=== PATIENT | female | born 1955 | race Caucasian/White ===

== ENCOUNTER 2023-09-04 18:47 | Observation (INO) | payer OTHER, MEDICARE ==
[~2023-09-04] VITALS: Ht 177.8 cm; Wt 96.4 kg
[2023-09-04] MEDS ORDERED: ASPI81CH PO (18:55)
[2023-09-04] MEDS ORDERED: OMEP20ER PO (19:52)
[2023-09-04] MEDS ORDERED: ZOLP10 PO (19:52)
[2023-09-04] MEDS ORDERED: CYCL10 PO (19:52)
[2023-09-04] MEDS ORDERED: LOSA25 (19:53)
[2023-09-04] MEDS ORDERED: Ativan1 MG PO (19:53)
[2023-09-04] MEDS ORDERED: Cymbalta20 MG (19:54)
[2023-09-04 20:15] LABS: Calcium, Ionized (POC) 1.06 mmol/L (1.10-1.46); Chloride (POC) 101 mmol/L (98-108); Creatinine (POC) 0.9 mg/dL (0.6-1.0); Glucose (ISTAT POC) 123 mg/dL (70-99); Hemoglobin (POC) 13.9 g/dL (12.0-16.0); Potassium (POC) 3.8 mmol/L (3.5-5.5); Sodium (POC) 136 mmol/L (135-148); Total CO2 (POC) 24 mmol/L (21-32)
[2023-09-04 21:45] LABS: BASOPHILS ABSOLUTE AUTO 0.05 K/mm3 (0.00-0.23); BASOPHILS PERCENT AUTO 0 % (0-2); EOSINOPHILS ABSOLUTE AUTO 0.07 K/mm3 (0.00-0.68); EOSINOPHILS PERCENT AUTO 1 % (0-6); Hematocrit 41.3 % (33.0-51.0); Hemoglobin 14.1 g/dL (11.5-16.0); IMMATURE GRAN ABSOLUTE AUTO 0.11 K/mm3 (0.00-0.10); IMMATURE GRAN PERCENT AUTO 1 % (0-1); LYMPHOCYTES ABSOLUTE AUTO 1.18 K/mm3 (0.84-5.20); LYMPHOCYTES PERCENT AUTO 8 % (21-46); MONOCYTES ABSOLUTE AUTO 0.84 K/mm3 (0.16-1.47); MONOCYTES PERCENT AUTO 6 % (4-13); Mean Corpuscular HGB Conc 34.1 g/dL (31.5-36.5); Mean Corpuscular Volume 91 fL (80-100); Mean Platelet Volume 12.2 fL (9.1-12.4); NEUTROPHILS PERCENT AUTO 85 % (41-73); Platelet Count 206 K/mm3 (150-400); RDW Coefficient Variation 12.8 % (11.7-14.2); RDW Standard Deviation 42.2 fL (35.1-46.3); Red Blood Cell Count 4.55 M/mm3 (3.80-5.20); White Blood Cell Count 15.35 K/mm3 (4.00-11.30)
[2023-09-04 21:57] LABS: Albumin, Blood 3.4 g/dL (3.4-5.0); Albumin/Globulin Ratio 1.1 (0.8-1.8); Bilirubin, Total 0.7 mg/dL (0.1-1.0); Bun/Creatinine Ratio 14.1 (12.0-20.0); Creatinine, Blood 0.99 mg/dL (0.40-1.00); Globulin, Blood 3.2 g/dL (2.2-4.0); Potassium, Blood 3.9 mmol/L (3.5-5.5); Total Protein, Blood 6.6 g/dL (6.4-8.2)
[2023-09-05 02:14] VITALS: BP 111/78
--- NOTE | 2023-09-05 02:36 | NUR ---
[facility] PT REQUIERING O2 TO KEEP SATS OVER 90%. PT PLACED ON 2L, AND STILL PT UNABLE TO MAINTAIN SATS, SATS HOVERING BETWEEN 86%-88%. RT CALLED AND CONSULTED ON PT. RT INITALLY PLACED PT ON 7 L O2 HIGH FLOW NASAL CANNULA, AND THEN DECREASED TO 6L. PT HAS BEEN ABLE TO MAINTAIN SATS AT ABOUT 95-96% ON 6L HIGH FLOW NASAL CANNULA. PT REPORTS THAT IT HURTS TO TAKE A DEEP BREATH IN. DR. MATAMOROS CALLED AND NOTIFIED OF PT 02 NEEDS. O2 ORDERED AND LEWIS BIOX ORDERED.
[2023-09-05 04:49] LABS: BASOPHILS ABSOLUTE AUTO 0.03 K/mm3 (0.00-0.23); BASOPHILS PERCENT AUTO 0 % (0-2); EOSINOPHILS ABSOLUTE AUTO 0.11 K/mm3 (0.00-0.68); EOSINOPHILS PERCENT AUTO 1 % (0-6); Hematocrit 37.8 % (33.0-51.0); IMMATURE GRAN ABSOLUTE AUTO 0.06 K/mm3 (0.00-0.10); IMMATURE GRAN PERCENT AUTO 0 % (0-1); LYMPHOCYTES ABSOLUTE AUTO 1.58 K/mm3 (0.84-5.20); LYMPHOCYTES PERCENT AUTO 11 % (21-46); MONOCYTES ABSOLUTE AUTO 0.93 K/mm3 (0.16-1.47); MONOCYTES PERCENT AUTO 7 % (4-13); Mean Corpuscular HGB 31.5 pg (26.0-34.0); Mean Corpuscular HGB Conc 34.4 g/dL (31.5-36.5); Mean Corpuscular Volume 92 fL (80-100); Mean Platelet Volume 11.6 fL (9.1-12.4); NEUTROPHILS ABSOLUTE AUTO 11.45 K/mm3 (1.96-9.15); NEUTROPHILS PERCENT AUTO 81 % (41-73); Platelet Count 183 K/mm3 (150-400); RDW Coefficient Variation 12.9 % (11.7-14.2); RDW Standard Deviation 42.5 fL (35.1-46.3); Red Blood Cell Count 4.13 M/mm3 (3.80-5.20); White Blood Cell Count 14.16 K/mm3 (4.00-11.30)
[2023-09-05 05:23] LABS: Albumin, Blood 3.1 g/dL (3.4-5.0); Bilirubin, Total 1.1 mg/dL (0.1-1.0); Bun/Creatinine Ratio 14.3 (12.0-20.0); Calcium, Blood 7.8 mg/dL (8.5-10.1); Creatinine, Blood 0.98 mg/dL (0.40-1.00); Potassium, Blood 3.9 mmol/L (3.5-5.5); Total Protein, Blood 6.1 g/dL (6.4-8.2)
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
[2023-09-05 07:31] VITALS: BP 135/82
[2023-09-05 15:39] VITALS: BP 149/93
[2023-09-05 19:18] VITALS: BP 130/67
--- NOTE | 2023-09-05 19:52 | NUR ---
PT HAS BEEN STABLE THIS SHIFT. O2 WEANED TO 1L NC. CONT BIOX REMAINS IN PLACE. IS USE APPROPRIATELY. PT WORKED WITH NURSING AND PT TO GET OOB. PUREWICK REMOVED, PT VOIDING WELL ON COMMODE. PAIN LEVELS HIGH, MANAGED WELL WITH PRN MEDS. K PAD PLACED TO BACK FOR PAIN RELIEF. ABD BINDER IN PLACE ALSO FOR COMFORT. TOLERATING DIET. PT CALL IGHT USED APPROPRIATELY NEEDED.
--- NOTE | 2023-09-06 04:31 | NUR ---
I CALLED [facility] REGARDING SCHEDULING TRANSPORT TO [place].I WAS ADVISED THEY ARE UNABLE TO TRANSPORT PT UNTIL APPROX 0900 DUE TO MULTIPLE TRANSFERS FROM [facility].I ADVISED EV AT TRANFERS DEPT [place] AND SHE STATED THEY MADELINE NOT GIVE PTS ROOM AWAY.TRANSFER IN AM IS ACCEPTABLE. I
[2023-09-06 06:16] VITALS: BP 141/84
[2023-09-06 07:31] VITALS: BP 152/83
[2023-09-06 08:06] VITALS: BP 152/83
--- NOTE | 2023-09-06 08:41 | NUR ---
SHIFT SUMMARY NOC. PT A/O X4. PT MEDICATED FOR PAIN X1 THIS SHIFT WITH RELIEF OF SX. PT REQUESTED HOME MED AMBIEN FOR SLEEP AND NEW ORDER RECEIVED AND GIVEN. PT'S BED ALARM WAS PLACED D/T SAFETY FOR AMBIEN. THIS RN WAS NOTIFIED OF POSSIBLE [place] TRANSFER FROM DR. SEGUNDO. DOCTOR OF [facility]ER[facility]IC[facility] HELPED WITH COORDINATION OF TRANSFER. ESTIMATED TIME OF TRANSFER SET TO BE 1100 TO [facility]. PT IN AGREEMENT WITH PLAN TO TRANSFER. NOTIFIED DAY SHIFT RN THAT REPORT NOT YET CALLED TO [facility]. PT VOIDING URINE AND HAS BEEN NPO SINCE 0000. PT RESTED WITH EYES CLOSED AND CALL LIGHT IN REACH.
[2023-09-06 10:56] VITALS: BP 168/105
[2023-09-06 11:08] VITALS: BP 152/94
[2023-09-06 11:18] VITALS: BP 152/94
--- NOTE | 2023-09-06 11:29 | NUR ---
transferred REPORT CALLED TO [facility]. PT LEFT W/TRANSPORT. POSSESSIONS AND TRANSFER PAPERWORK WENT WITH PT.
== END 2023-09-06 11:28 | disposition short-term general hospital (02) ==
LOC: ER 18:47 → SURS 18:48 → MEDS 18:48 → ER 18:48 → MEDS 18:49 → SURS 18:50 → MEDS 09-05 01:15 → SURS 09-05 01:20
PROVIDERS: Emergency Medicine; ADMIT Internal Medicine
DX: S22.018A Other fracture of first thoracic vertebra, initial encounter for closed fracture (principal); R09.02 Hypoxemia; F41.9 Anxiety disorder, unspecified; K21.9 Gastro-esophageal reflux disease without esophagitis; F32.A Depression, unspecified; V89.2XXA Person injured in unspecified motor-vehicle accident, traffic, initial encounter
CPT/HCPCS: 36415; 70498; 71045; 72100; 72128; 80047; 80053; 83880; 85014; 85025; 93005; 93010; 94760; 94762; 96372-59; 96374-59; 96375; 96375-59; 96376; 96376-59; 97116; 97161; 99285-25; A9270; G0378; J1170; J1650; J1885; J2405; J3010; J7030; Q9967